=== PATIENT | female | born 1955 | race African-American/Black ===

== ENCOUNTER 2020-09-12 18:19 | Emergency (ER) | payer MEDICARE, MEDICAID ==
[~2020-09-12] VITALS: Ht 170.2 cm; Wt 104.0 kg
[2020-09-12] MEDS ORDERED: HYDROCODONE/ACETAMINOPHEN 5/325MG TABLET PO STA (23:26)
[2020-09-12 23:51] LABS: BASOPHILS % 0.5 % (0.0-2.0); EOSINOPHILS % 0.8 % (0.0-5.0); HEMATOCRIT. 40.9 % (36.0-48.0); HEMOGLOBIN. 13.9 g/dL (12.0-16.0); LYMPHOCYTES % 30.3 % (20.0-50.0); MEAN CORPUSCULAR HEMOGLOBIN 31.4 pg (28.0-32.0); MEAN CORPUSCULAR VOLUME 92.6 fL (81.0-99.0); MEAN PLATELET VOLUME 9.8 fl (7.4-10.4); MONOCYTES % 2.8 % (2.0-8.0); NEUTROPHILS % 65.6 % (40.0-76.0); PLATELET 268 x1000/uL (130-400); RED BLOOD CELL COUNT 4.41 mill/uL (4.2-5.4); RED CELL DISTRIBUTION WIDTH 14.5 % (11.6-14.6)
[2020-09-12 23:56] LABS: CHLORIDE 109 mEq/L (98-107)
[2020-09-13] MEDS ORDERED: CLIN300C12 MT (03:19)
[2020-09-13 03:43] VITALS: BP 130/67
== END 2020-09-13 03:45 | disposition home or self-care (01) ==
LOC: ER 19:14
DX: L03.211 Cellulitis of face (principal); E11.9 Type 2 diabetes mellitus without complications; I10 Essential (primary) hypertension; F12.10 Cannabis abuse, uncomplicated
CPT/HCPCS: 36415; 80048; 85025; 93005; 99285

== ENCOUNTER 2021-12-10 20:19 | Emergency (ER) | payer MEDICARE, MEDICAID ==
[~2021-12-10] VITALS: Ht 170.2 cm; Wt 99.0 kg
[~2021-12-10 20:19] MED LIST: CLIN-194 MT
[2021-12-10 23:05] LABS: BASOPHILS % 0.5 % (0.0-2.0); EOSINOPHILS % 0.9 % (0.0-5.0); HEMATOCRIT. 40.6 % (36.0-48.0); HEMOGLOBIN. 13.6 g/dL (12.0-16.0); LYMPHOCYTES % 30.8 % (20.0-50.0); MEAN CORPUSCULAR HEMOGLOBIN 31.2 pg (28.0-32.0); MEAN PLATELET VOLUME 9.4 fl (7.4-10.4); MONOCYTES % 7.5 % (2.0-8.0); NEUTROPHILS % 60.3 % (40.0-76.0); PLATELET 249 x1000/uL (130-400); RED BLOOD CELL COUNT 4.37 mill/uL (4.2-5.4); RED CELL DISTRIBUTION WIDTH 14.8 % (11.6-14.6)
[2021-12-10 23:06] LABS: CHLORIDE 109 mEq/L (98-107)
[2021-12-10 23:07] VITALS: BP 143/65
[2021-12-10] MEDS ORDERED: ONDANSETRON HCL 4MG/2ML INJ IV STA (23:07)
[2021-12-10] MEDS ORDERED: MORPHINE SULFATE 4 MG/ML CPJ (NOT FOR IM USE) IV STA (23:07)
[2021-12-10 23:15] LABS: CLARITY URINE CLEAR (CLEAR); COLOR URINE YELLOW (YELLOW); KETONES URINE TRACE (NEGATIVE); LEUKOCYTE ESTERASE URINE TRACE (NEGATIVE); NITRITE URINE NEGATIVE (NEGATIVE); OCCULT BLOOD URINE TRACE (NEGATIVE); PH URINE 5.5 (4.5-8.0); PROTEIN URINE TRACE (NEGATIVE); SPECIFIC GRAVITY URINE 1.023 (1.005-1.030)
[2021-12-11] MEDS ORDERED: ACET-2708 MT (03:58)
== END 2021-12-11 04:46 | disposition home or self-care (01) ==
LOC: ER 20:19
DX: R10.84 Generalized abdominal pain (principal); I10 Essential (primary) hypertension; E11.9 Type 2 diabetes mellitus without complications; Z85.3 Personal history of malignant neoplasm of breast
CPT/HCPCS: 36415; 74176; 80053; 81003; 83690; 85025; 96374; 96375; 99284; J2270; J2405

== ENCOUNTER 2022-04-08 13:30 | Emergency (ER) | payer MEDICARE, MEDICAID ==
[~2022-04-08] VITALS: Ht 170.2 cm; Wt 99.0 kg
[~2022-04-08 13:30] MED LIST changes: +ACET-2708 MT
[2022-04-08 13:39] VITALS: BP 157/89
[2022-04-08] MEDS ORDERED: KETOROLAC 60MG/2ML VIAL IM ONE (15:30)
== END 2022-04-08 15:58 | disposition home or self-care (01) ==
LOC: ER 13:30
DX: H11.32 Conjunctival hemorrhage, left eye (principal); I10 Essential (primary) hypertension; Z88.8 Allergy status to other drugs, medicaments and biological substances; Z98.890 Other specified postprocedural states
CPT/HCPCS: 96372; 99283; J1885

== ENCOUNTER 2023-05-22 20:57 | Emergency (ER) | payer MEDICARE, MEDICAID ==
[~2023-05-22] VITALS: Ht 170.2 cm; Wt 103.0 kg
[2023-05-22 22:36] VITALS: BP 132/73; PULSE 83; RESP 13; TEMP 98.3; O2SAT 98
[2023-05-23] MEDS ORDERED: HYDROCODONE/ACETAMINOPHEN 5/325MG TABLET PO STA (01:20)
[2023-05-23] MEDS ORDERED: KETOROLAC 30MG/ML VIAL IM STA (01:20)
[2023-05-23] MEDS ORDERED: HYDROCODONE/ACETAMINOPHEN 5/325MG TABLET PO NR (04:15)
[2023-05-23] MEDS: KETOROLAC 30MG/ML VIAL IM NR ×2 (04:15→05:17)
[2023-05-23] MEDS ORDERED: HYDR-4001 MT (04:51)
[2023-05-23] MEDS ORDERED: NAPR-681 MT (04:51)
== END 2023-05-23 00:36 | disposition home or self-care (01) ==
LOC: ER 20:57
DX: M54.42 Lumbago with sciatica, left side (principal); G89.29 Other chronic pain; E11.9 Type 2 diabetes mellitus without complications; I10 Essential (primary) hypertension; F12.10 Cannabis abuse, uncomplicated; Z85.9 Personal history of malignant neoplasm, unspecified
CPT/HCPCS: 99283; 72100; J1885